=== PATIENT | male | born 1950 ===

== ENCOUNTER 2024-10-27 06:00 | Emergency (ER) | payer MEDICARE, MEDICAID ==
[2024-10-27] MEDS ORDERED: Sodium Chloride 0.9% 10 ML Syringe FLUSH PRN (06:11)
[2024-10-27 06:33] LABS: BASOPHILS ABSOLUTE AUTO 0.04 K/uL (0.00-0.20); BASOPHILS PERCENT AUTO 0.6 % (0.0-2.0); EOSINOPHILS ABSOLUTE AUTO 0.50 K/uL (0.00-0.50); EOSINOPHILS PERCENT AUTO 7.3 % (0.0-5.0); IMMATURE GRAN ABSOLUTE AUTO 0.03 10^3/uL (0.00-0.04); IMMATURE GRAN PERCENT AUTO 0.4 % (0.0-0.4); LYMPHOCYTES ABSOLUTE AUTO 1.43 K/uL (0.50-3.50); LYMPHOCYTES PERCENT AUTO 20.8 % (10.0-50.0); MONOCYTES ABSOLUTE AUTO 0.94 K/uL (0.00-1.00); MONOCYTES PERCENT AUTO 13.6 % (2.0-14.0); NEUTROPHILS ABSOLUTE AUTO 3.95 K/uL (1.40-7.00); NEUTROPHILS PERCENT AUTO 57.3 % (45.0-80.0); PLATELET COUNT,PLT 197 K/uL (150-350); RED BLOOD CELL COUNT 4.26 M/uL (4.33-5.41); RED CELL DISTRIBUTION WIDTH 13.6 % (11.2-14.1); WHITE BLOOD CELL COUNT,WBC 6.9 K/uL (4.0-10.2)
[2024-10-27 06:57] LABS: ALANINE AMINOTRANSFERASE,ALT 9.0 U/L (12-78); ASPARTATE AMNIOTRANSFERASE,AST 14.0 U/L (15-37); BILIRUBIN TOTAL 1.3 mg/dL (0.2-1.0); BLOOD UREA NITROGEN,BUN 21.0 mg/dL (7-18); CARBON DIOXIDE,CO2 23.7 mmol/L (21.0-32.0); CHLORIDE,CL 105.0 mmol/L (98-107); CREATININE 1.43 mg/dL (0.51-1.17); EST CRCL DRUG DOSING (CG) 48.99 mL/min; ESTIMATED GFR 51.0 mL/min (>=60); GLUCOSE RANDOM 113.0 mg/dL (70-99); POTASSIUM,K 4.3 mmol/L (3.5-5.1); PROTEIN TOTAL,TP 7.0 g/dL (6.4-8.2); SODIUM,NA 138.0 mmol/L (136-145)
[2024-10-27 07:00] LABS: LACTIC ACID 1.8 mmol/L (0.4-2.0)
[2024-10-27 07:09] LABS: INR 1.2 (0.9-1.1); PTT,PARTIAL THROMBOPLSTIN TIME 29.6 SEC (23.8-34.4)
[2024-10-27 08:33] LABS: APPEARANCE,URINE CLOUDY; GLUCOSE,URINE >=1000 mg/dL (NEGATIVE); OCCULT BLOOD,URINE LARGE (NEGATIVE)
[2024-10-27 08:34] LABS: SQUAMOUS EPITHELIAL CELLS,UR OCCASIONAL /HPF (NOT SEEN)
== END 2024-10-27 09:15 | disposition home or self-care (01) ==
LOC: LL.ED 06:00
DX: E11.621 Type 2 diabetes mellitus with foot ulcer (principal); Z88.1 Allergy status to other antibiotic agents; Z79.899 Other long term (current) drug therapy; Z79.82 Long term (current) use of aspirin; Z79.4 Long term (current) use of insulin
CPT/HCPCS: 36415; 71046; 80053; 81001; 83605; 83735; 85025; 85610; 85730; 86140; 87040; 99283